=== PATIENT | male | born 1970 | race Caucasian/White ===

== ENCOUNTER 2017-04-17 08:19 | Emergency (ER) | payer OTHER ==
[2017-04-17 08:51] VITALS: RESP 16
--- NOTE | 2017-04-17 09:19 | C.PDOC ---
History Of Present Illness 47 year old patient, with a past medical history of hypertension and hypercholesterolemia, presents to the ED complaining of non-traumatic right knee pain for the past 4 days. Patient states he injured his right knee meniscus about 10 years ago. He had previous pain to the knee, but it has been worse for the last 4 days. The pain is alleviated by rest and is worse on ambulation. Patient denies any new trauma, numbness or weakness. Patient did not take any medication for pain today. Time Seen by Provider: 04/17/17 08:44 Chief Complaint (Nursing): Lower Extremity Problem/Injury History Per: Patient History/Exam Limitations: no limitations Onset/Duration Of Symptoms: Worse Since (4 days) Current Symptoms Are (Timing): Still Present Severity: Mild Pain Scale Rating Of: 3 Recent travel outside of the [place]: No Past Medical History Reviewed: Historical Data, Nursing Documentation, Vital Signs Vital Signs: Last Vital Signs Temp 98.3 F 04/17/17 11:25 Pulse 57 L 04/17/17 11:25 Resp 16 04/17/17 11:25 BP 116/79 04/17/17 11:25 Pulse Ox 99 04/17/17 12:43 - Medical History PMH: HTN, Hypercholesterolemia - [facility] Procedures CORONAR ARTERIOGR-2 CATH (09/04/14) LEFT HEART CARDIAC CATH (09/04/14) LT HEART ANGIOCARDIOGRAM (09/04/14) Family History: States: Hypertension - Social History Hx Tobacco Use: Yes Hx Alcohol Use: No Hx Substance Use: No - Immunization History Hx Tetanus Toxoid Vaccination: Yes Hx Influenza Vaccination: No Hx Pneumococcal Vaccination: No Review Of Systems Except As Marked, All Systems Reviewed And Found Negative. Musculoskeletal: Positive for: Other (right knee pain) Neurological: Negative for: Weakness, Numbness, Other (new trauma) Physical Exam - Physical Exam Appears: Non-toxic, No Acute Distress Skin: Normal Color, Warm, Dry Head: Atraumatic, Normacephalic Neck: Normal ROM, Supple Chest: Symmetrical Cardiovascular: Rhythm Regular Respiratory: No Accessory Muscle Use Back: Normal Inspection Extremity: Normal ROM, No Pedal Edema, No Calf Tenderness, Capillary Refill (<2 seconds), No Deformity, No Swelling, Other (right knee: strong pulse, normal strength and sensation, no swelling, no popiteal pain,(+) pain on palpation to the right medial aspect) Extremity: Right: Painful To Bear Weight, Bilateral: Atraumatic Neurological/Psych: Oriented x3, Normal Speech, Normal Motor, Normal Sensation Gait: Steady ED Course And Treatment O2 Sat by Pulse Oximetry: 99 (room air) Pulse Ox Interpretation: Normal - Other Rad right knee X-Ray: Interpreted by Me, Viewed By Me Interpretation: Soft tissue calcification. No acute fracture. Progress Note: Plan: Right knee x-ray, Toradol. Knee immobilizer applied. Crutches given to assist with ambulation. Pt instructed in crutch walking. Upon reassessment, patient's pain has improved. Patient is resting comfortably, and is in no acute distress. Patient was instructed to follow up with orthopedics in 1-2 days for further evaluation. Return if symptoms persist/ worsen. Reassessment Condition: Improved Disposition Counseled Patient/Family Regarding: Studies Performed, Diagnosis, Need For Followup, Rx Given - Disposition Referrals: Tung Sal III, MD [Staff Provider] - Disposition: HOME/ ROUTINE Disposition Time: 10:24 Condition: STABLE Additional Instructions: FOLLOW UP WITH ORTHOPEDIST IN 1-2 DAYS FOR RE-EVALUATION AND OFFICIAL XRAY REPORT. REST, ICE, ELEVATION, NO WEIGHT BEARING. IF SYMPTOMS GET WORSE OR ANY NEW CONCERNING SYMPTOMS DEVELOP RETURN TO ED. Prescriptions: Ibuprofen [Motrin Tab] 800 mg PO Q8H PRN #15 tab PRN Reason: Pain Instructions: Knee Pain (ED), Knee Immobilizer (ED) Forms: General Discharge Instructions - Clinical Impression Clinical Impression: Knee pain, right - PA / STATOR WINDER / Resident Statement MD/DO has reviewed & agrees with the documentation as recorded. - Scribe Statement The provider has reviewed the documentation as recorded by the Scribe Giovana Diez All medical record entries made by the Scribe were at my direction and personally dictated by me. I have reviewed the chart and agree that the record accurately reflects my personal performance of the history, physical exam, medical decision making, and the department course for this patient. I have also personally directed, reviewed, and agree with the discharge instructions and disposition.
--- NOTE | 2017-04-17 11:28 | RAD ---
Right knee three views History: Knee pain. Comparison: Available. Findings: Suggestion of cortical thickening at the level of the proximal fibula on the lateral view which is not as well appreciated on the frontal views. This is nonspecific. Correlation with plain x-ray of the tibia and fibula may be helpful if clinically indicated. Mild medial compartment joint space narrowing of the femorotibial joint space. Mild patellofemoral compartment joint space narrowing. Small suprapatellar joint effusion. Minimal bony spurring at the posterior superior and posterior inferior bony patella. Productive change at the anterior tibial tuberosity which may represent heterotopic bone and or underlying soft tissue calcification. Impression: Suggestion of cortical thickening at the level of the proximal fibula on the lateral view which is not as well appreciated on the frontal views. This is nonspecific. Correlation with plain x-ray of the tibia and fibula may be helpful if clinically indicated. Mild medial compartment joint space narrowing of the femorotibial joint space. Mild patellofemoral compartment joint space narrowing. Small suprapatellar joint effusion. Minimal bony spurring at the posterior superior and posterior inferior bony patella. Productive change at the anterior tibial tuberosity which may represent heterotopic bone and or underlying soft tissue calcification. If pain persists, consider MRI.
[2017-04-17 11:46] VITALS: BP 116/79; PULSE 57; TEMP 98.3
[2017-04-17 12:02] VITALS: O2SAT 99
== END 2017-04-17 11:25 | disposition home or self-care (01) ==
LOC: C.ER 08:19
DX: M25.561 Pain in right knee (principal)
CPT/HCPCS: 73562; 96372; 99285; J1885